=== PATIENT | female | born 1995 | race Caucasian/White ===

== ENCOUNTER 2022-06-02 13:50 | Emergency (ER) | payer MEDICAID ==
[~2022-06-02] VITALS: Ht 162.6 cm; Wt 70.3 kg
[2022-06-02 14:02] VITALS: BP 110/74
--- NOTE | 2022-06-02 14:30 | NUR ---
26/F WALKED IN C/O LOW ABD PAIN X3DAYS. STATES TESTING POSITIVE FOR HOME PREG TEST. DENIES ANY VAGINAL BLEEDING OR DISCHARGE. AAO4, AMBULATORY, VITALS STABLE. DENIES NVD PMH: DENIES
[2022-06-02 15:14] LABS: BASOPHILS % (AUTO) 0.3 % (0.0-2.0); EOSINOPHILS # (AUTO) 0.2 K/uL (0-0.4); EOSINOPHILS % (AUTO) 2.3 % (0.0-4.0); HEMATOCRIT 40.5 % (36-48); HEMOGLOBIN 13.9 g/dL (12.0-16.0); LYMPHOCYTES # (AUTO) 1.8 K/uL (2.5-16.5); LYMPHOCYTES % (AUTO) 19.2 % (20.5-51.1); MEAN CORPUSCULAR HEMOGLOBIN 29 pg (27-31); MEAN CORPUSCULAR HGB CONC 34 g/dL (33-37); MEAN CORPUSCULAR VOLUME 83.2 fL (80-94); MONOCYTES # (AUTO) 0.7 K/uL (0.8-1.0); MONOCYTES % (AUTO) 7.3 % (1.7-9.3); NEUTROPHILS # (AUTO) 6.6 K/uL (1.8-7.7); NEUTROPHILS % (AUTO) 70.9 % (42.2-75.2); PLATELET COUNT (AUTO) 303 K/uL (140-450); RED BLOOD CELL COUNT(AUTO) 4.87 MIL/uL (4.20-5.40); RED CELL DISTRIBUTION WIDTH 12.9 % (11.6-13.7); WHITE BLOOD COUNT (AUTO) 9.2 K/uL (4.8-10.8)
[2022-06-02 16:15] LABS: ALBUMIN 4.1 g/dL (3.4-5.0); ANION GAP 13.4 (8-16); CARBON DIOXIDE 25.8 mmol/L (21-32); CREATININE 0.7 mg/dL (0.6-1.3); POTASSIUM 4.2 mmol/L (3.5-5.1); TOTAL BILIRUBIN 0.4 mg/dL (0.0-1.0)
[2022-06-02 16:58] LABS: APPEARANCE,URINE CLEAR (CLEAR); BILIRUBIN,URINE NEGATIVE (NEGATIVE); BLOOD, URINE NEGATIVE (NEGATIVE); COLOR,URINE YELLOW (YELLOW); LEUKOCYTE ESTERASE ,URINE NEGATIVE (NEGATIVE); NITRITE, URINE NEGATIVE (NEGATIVE); UGLUCOSE NEGATIVE (NEGATIVE)
[2022-06-02] MEDS ORDERED: PREN1CTB21 PO (17:30)
[2022-06-02] MEDS ORDERED: LACTATED RINGERS 1,000 ML IV ONE (17:35)
[2022-06-02] MEDS ORDERED: INSULIN REGULAR, HUMAN 100 UNIT/ML VIAL IVP ONE (17:35)
[2022-06-02] MEDS ORDERED: CALCIUM GLUCONATE 10% 1,000 MG in NACL 0.9% 50 ML IV ONE (17:35)
[2022-06-02] MEDS ORDERED: DEXTROSE 50% 50 ML SYR IVP ONE (17:35)
== END 2022-06-02 18:06 | disposition home or self-care (01) ==
LOC: MED 13:50
DX: O21.8 Other vomiting complicating pregnancy (principal); O26.899 Other specified pregnancy related conditions, unspecified trimester; R10.30 Lower abdominal pain, unspecified; Z3A.01 Less than 8 weeks gestation of pregnancy; R10.2 Pelvic and perineal pain
CPT/HCPCS: 36415; 76817; 80053; 81003; 81025; 84702; 85025; 86900; 86901; 99284; J1815; Q0092

== ENCOUNTER 2022-06-14 16:56 | Emergency (ER) | payer SELFPAY ==
[~2022-06-14] VITALS: Ht 165.1 cm; Wt 92.5 kg
[~2022-06-14 16:56] MED LIST: PREN1CTB21 PO
[2022-06-14 17:12] VITALS: BP 130/65
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
--- NOTE | 2022-06-14 18:34 | NUR ---
Patient discharged with v/s stable. Written and verbal after care instructions ABOUT SHOULDER PAIN, ACUTE BACK PAIN given and explained. Patient verbalized understanding. Ambulatory with steady gait. All questions addressed prior to discharge. Advised to follow up with PMD.
== END 2022-06-14 18:34 | disposition home or self-care (01) ==
LOC: MED 16:56
DX: O26.891 Other specified pregnancy related conditions, first trimester (principal); M54.2 Cervicalgia; M54.50 Low back pain, unspecified; M25.511 Pain in right shoulder; Z3A.01 Less than 8 weeks gestation of pregnancy; V49.9XXA Car occupant (driver) (passenger) injured in unspecified traffic accident, initial encounter; Y93.89 Activity, other specified; Y92.410 Unspecified street and highway as the place of occurrence of the external cause; Y99.8 Other external cause status; Z79.899 Other long term (current) drug therapy
CPT/HCPCS: 99282

== ENCOUNTER 2023-08-26 16:37 | Emergency (ER) | payer MEDICAID, OTHER ==
[~2023-08-26] VITALS: Ht 165.1 cm; Wt 108.9 kg
[2023-08-26 16:56] VITALS: BP 110/66; PULSE 73; RESP 18; TEMP 97.1; O2SAT 99
[2023-08-26] MEDS: ONDANSETRON 4 MG ODT PO ONE (18:51)
[2023-08-26] MEDS ORDERED: IBUP-2213 PO (18:53)
[2023-08-26] MEDS ORDERED: ONDA8TAB87 PO (18:53)
[2023-08-26] MEDS: KETOROLAC 60 MG/2 ML VIAL IM ONE (18:54)
[2023-08-26 19:30] VITALS: BP 128/74; PULSE 71; RESP 18; TEMP 97.3; O2SAT 99
[2023-08-26] MEDS: MORPHINE SULFATE 4 MG/ML SYR IM ONE (19:32)
[2023-08-27] MEDS ORDERED: ONDA-188 SL (05:57)
[2023-08-27] MEDS ORDERED: CEPH-588 PO (05:57)
[2023-08-27] MEDS ORDERED: ACET-10509 PO (05:57)
[2023-08-27] MEDS ORDERED: NITR100C7 PO (06:12)
== END 2023-08-26 20:08 | disposition home or self-care (01) ==
LOC: MED 16:37
DX: R10.13 Epigastric pain (principal); R11.2 Nausea with vomiting, unspecified; R19.7 Diarrhea, unspecified; Z79.899 Other long term (current) drug therapy
CPT/HCPCS: 81002; 81025; 96372; 99284; J1885; J2270; Q0162

== ENCOUNTER 2023-08-27 02:20 | Emergency (ER) | payer OTHER ==
[~2023-08-27] VITALS: Ht 165.1 cm; Wt 92.5 kg
[2023-08-27 02:20] VITALS: BP 101/60; PULSE 102; RESP 17; TEMP 98.5; O2SAT 99
[~2023-08-27 02:20] MED LIST changes: +IBUP-2213 PO; +ONDA8TAB87 PO
[2023-08-27] MEDS: ONDANSETRON 4 MG/2 ML VIAL IVP ONE (02:50)
[2023-08-27 02:58] LABS: ANION GAP 14.1 (8-16); CALCIUM 8.7 mg/dL (8.5-10.1); CARBON DIOXIDE 26.8 mmol/L (21-32); CREATININE 0.9 mg/dL (0.6-1.3)
[2023-08-27 02:59] LABS: BASOPHILS % (AUTO) 0.1 % (0.0-2.0); EOSINOPHILS # (AUTO) 0.1 K/uL (0-0.4); HEMATOCRIT 40.6 % (36-48); LYMPHOCYTES # (AUTO) 1.1 K/uL (2.5-16.5); LYMPHOCYTES % (AUTO) 10.9 % (20.5-51.1); MEAN CORPUSCULAR HEMOGLOBIN 28 pg (27-31); MEAN CORPUSCULAR HGB CONC 35 g/dL (33-37); MEAN CORPUSCULAR VOLUME 81.8 fL (80-94); MONOCYTES # (AUTO) 0.1 K/uL (0.8-1.0); MONOCYTES % (AUTO) 0.9 % (1.7-9.3); NEUTROPHILS # (AUTO) 8.6 K/uL (1.8-7.7); NEUTROPHILS % (AUTO) 87.1 % (42.2-75.2); PLATELET COUNT (AUTO) 244 K/uL (140-450); RED BLOOD CELL COUNT(AUTO) 4.96 MIL/uL (4.20-5.40); RED CELL DISTRIBUTION WIDTH 12.8 % (11.6-13.7); WHITE BLOOD COUNT (AUTO) 9.8 K/uL (4.8-10.8)
[2023-08-27 03:00] LABS: POTASSIUM 2.9 mmol/L (3.5-5.1)
[2023-08-27 03:04] LABS: ALBUMIN 3.7 g/dL (3.4-5.0); BILIRUBIN,DIRECT 0.1 mg/dL (0.0-0.3); TOTAL BILIRUBIN 0.4 mg/dL (0.0-1.0); TOTAL PROTEIN, SERUM 7.3 g/dL (6.4-8.2)
[2023-08-27 03:29] LABS: APPEARANCE,URINE CLOUDY (CLEAR); BILIRUBIN,URINE 2+ (NEGATIVE); BLOOD, URINE NEGATIVE (NEGATIVE); COLOR,URINE YELLOW (YELLOW); LEUKOCYTE ESTERASE ,URINE NEGATIVE (NEGATIVE); NITRITE, URINE POSITIVE (NEGATIVE); PH,URINE 5.5 (5.0-9.0); PROTEIN,URINE 2+ (NEGATIVE); UGLUCOSE NEGATIVE (NEGATIVE)
[2023-08-27 03:35] LABS: ICTOTEST POSITIVE (NEGATIVE); RBC,URINE 0-5 /HPF (0-5); WBC,URINE 0-5 /HPF (0-5)
[2023-08-27 03:36] LABS: BACTERIA,URINE >30 (MANY) /HPF (None Seen); MUCUS,URINE 1+ /LPF (None Seen)
[2023-08-27] MEDS ORDERED: MORPHINE SULFATE 4 MG/ML SYR ONE (03:40)
[2023-08-27] MEDS: NACL 0.9% 1,000 ML IV ONE (03:44)
[2023-08-27] MEDS: MORPHINE SULFATE 4 MG/ML SYR IVP ONE (03:44)
[2023-08-27] MEDS: KCL 20 MEQ IN 100 mL PREMIX 100 ML IV ONE (04:20)
[2023-08-27] MEDS ORDERED: ONDA-188 SL (05:57)
[2023-08-27] MEDS ORDERED: ACET-10509 PO (05:57)
[2023-08-27] MEDS ORDERED: CEPH-588 PO (05:57)
[2023-08-27] MEDS ORDERED: NITR100C7 PO (06:12)
[2023-08-27 06:25] VITALS: BP 124/66; PULSE 82; RESP 16; TEMP 98; O2SAT 99
== END 2023-08-27 06:25 | disposition home or self-care (01) ==
LOC: MED 02:20
DX: N39.0 Urinary tract infection, site not specified (principal); Z79.1 Long term (current) use of non-steroidal anti-inflammatories (NSAID); Z79.899 Other long term (current) drug therapy; Z88.8 Allergy status to other drugs, medicaments and biological substances
CPT/HCPCS: 36415; 74176; 80048; 80076; 81001; 81025; 83690; 85025; 87086; 96361; 96374; 96375; 99285; J2270; J2405; J3480; J7030

== ENCOUNTER 2023-12-02 15:51 | Emergency (ER) | payer OTHER ==
[~2023-12-02] VITALS: Ht 165.1 cm; Wt 91.2 kg
[~2023-12-02 15:51] MED LIST changes: +ACET-10509 PO; +NITR100C7 PO; +ONDA-188 SL
[2023-12-02 16:18] VITALS: BP 110/74; PULSE 70; RESP 17; TEMP 98; O2SAT 99
[2023-12-02] MEDS: FAMOTIDINE 20 MG TAB PO ONE (17:00)
[2023-12-02] MEDS: ALUMINUM HYD/MAG/SIMETHICONE 30 ML UDC PO ONE (17:00)
[2023-12-02 17:57] LABS: APPEARANCE,URINE CLEAR (CLEAR); BILIRUBIN,URINE NEGATIVE (NEGATIVE); BLOOD, URINE NEGATIVE (NEGATIVE); COLOR,URINE YELLOW (YELLOW); LEUKOCYTE ESTERASE ,URINE NEGATIVE (NEGATIVE); NITRITE, URINE NEGATIVE (NEGATIVE); PROTEIN,URINE NEGATIVE (NEGATIVE); UGLUCOSE NEGATIVE (NEGATIVE); UROBILINOGEN,URINE 0.2 EU/dL (0.2 - 1)
[2023-12-02 18:50] LABS: BASOPHILS % (AUTO) 0.2 % (0.0-2.0); EOSINOPHILS # (AUTO) 0.1 K/uL (0-0.4); EOSINOPHILS % (AUTO) 0.6 % (0.0-4.0); HEMATOCRIT 39.1 % (36-48); LYMPHOCYTES # (AUTO) 1.7 K/uL (2.5-16.5); LYMPHOCYTES % (AUTO) 11.2 % (20.5-51.1); MEAN CORPUSCULAR HEMOGLOBIN 28 pg (27-31); MEAN CORPUSCULAR HGB CONC 33 g/dL (33-37); MEAN CORPUSCULAR VOLUME 83.1 fL (80-94); MONOCYTES # (AUTO) 0.6 K/uL (0.8-1.0); MONOCYTES % (AUTO) 4.2 % (1.7-9.3); NEUTROPHILS # (AUTO) 12.6 K/uL (1.8-7.7); NEUTROPHILS % (AUTO) 83.8 % (42.2-75.2); PLATELET COUNT (AUTO) 324 K/uL (140-450); RED BLOOD CELL COUNT(AUTO) 4.71 MIL/uL (4.20-5.40); RED CELL DISTRIBUTION WIDTH 13.1 % (11.6-13.7)
[2023-12-02 18:59] LABS: ANION GAP 13.9 (8-16); CALCIUM 9.3 mg/dL (8.5-10.1); CARBON DIOXIDE 25.9 mmol/L (21-32); CREATININE 0.5 mg/dL (0.6-1.3); POTASSIUM 3.8 mmol/L (3.5-5.1)
[2023-12-02 19:12] LABS: ALBUMIN 3.6 g/dL (3.4-5.0); BILIRUBIN,DIRECT 0.1 mg/dL (0.0-0.3); TOTAL BILIRUBIN 0.4 mg/dL (0.0-1.0); TOTAL PROTEIN, SERUM 7.5 g/dL (6.4-8.2)
[2023-12-02] MEDS ORDERED: ACET-10509 PO (19:13)
== END 2023-12-02 19:24 | disposition home or self-care (01) ==
LOC: MED 15:51
DX: O26.891 Other specified pregnancy related conditions, first trimester (principal); R10.12 Left upper quadrant pain; Z3A.08 8 weeks gestation of pregnancy; Z79.1 Long term (current) use of non-steroidal anti-inflammatories (NSAID); Z79.899 Other long term (current) drug therapy
CPT/HCPCS: 36415; 76705; 76817; 80048; 80076; 81003; 81025; 83690; 84702; 85025; 86900; 86901; 99284